=== PATIENT | female | born 1950 | race Caucasian/White ===

== ENCOUNTER 2020-01-28 18:20 | Inpatient (IN) ==
[2020-01-28] MEDS ORDERED: Morphine 4 MG/ML VIAL (1 ml) IV ONE (18:30)
[2020-01-28 19:01] LABS: ABS Basophils 0.1 10^3/ul (0-0.2); ABS Lymphocytes 1.1 10^3/ul (1.0-4.8); ABS Monocytes 0.6 10^3/ul (0-0.8); ABS Neutrophils 8.3 10^3/ul (1.5-7.7); Eosinophil % 0.3 %; Hematocrit 46 % (35-47); Hemoglobin 15.5 g/dL (12.0-16.0); Lymphocyte % 11.2 %; Mean Corpuscular HGB Conc 34 g/dL (31-36); Mean Corpuscular Hemoglobin 34 pg (27-31); Mean Corpuscular Volume 101 fL (80-97); Mean Platelet Volume 8.8 fL (7.4-10.4); Nucleated Red Blood Cells % 0.1; Platelet Count 184 10^3/uL (150-450); Red Blood Count 4.56 10^6 /uL (3.70-4.87); Red Cell Distribution Width 16 % (10-15); White Blood Count 10.1 10^3/uL (3.5-10.8)
[2020-01-28 19:10] LABS: Activated Partial Thrombo Time 32.5 seconds (26.0-38.0); INR 1.31 (0.82-1.09)
[2020-01-28 19:13] LABS: Albumin 4.2 g/dL (3.2-5.2); Calcium 9.4 mg/dL (8.6-10.3); Total Bilirubin 0.8 mg/dL (0.2-1.0)
[2020-01-28 19:19] LABS: Albumin/Globulin Ratio 1.5 (1-3); BUN/Creatinine Ratio 25.6 (8-20); EGFR African American 83.4 (>60); EGFR Non-African American 68.9 (>60); Globulin 2.8 g/dL (2-4)
[2020-01-28 19:21] LABS: Potassium 5.1 mmol/L (3.5-5.0)
[2020-01-28] MEDS ORDERED: Ondansetron 4 mg VIAL 2 MG/ML 2 ml VIAL IV PRN (20:51)
[2020-01-28] MEDS ORDERED: Al Hydrox/Mg Hydrox/Simet LIQ 30 ML UDC PO PRN (20:51)
[2020-01-28] MEDS ORDERED: Morphine 2 MG/ML SYRINGE IV PRN (20:51)
[2020-01-28 21:48] LABS: Magnesium 2.2 mg/dL (1.9-2.7)
[2020-01-28 22:09] LABS: Urine Appearance Clear; Urine Bilirubin Negative (Negative); Urine Blood Negative (Negative); Urine Color Yellow; Urine Glucose Negative (Negative); Urine Ketones Trace (Negative); Urine Nitrite Negative (Negative); Urine Protein Negative (Negative); Urine Specific Gravity 1.009 (1.010-1.030); Urine Urobilinogen Negative (Negative)
[2020-01-28 22:55] LABS: TSH Ultra Thyroid Stim Horm 0.68 mcIU/mL (0.34-5.60)
[2020-01-28 23:17] LABS: Vitamin D Total 25(OH) 8.9 ng/mL (20-50)
[2020-01-28] MEDS: oxyCODONE/Acetamin 5/325 mg TAB PO PRN (23:58)
[2020-01-29] MEDS: Senna TAB 8.6 mg TAB PO SCH ×3 (04:58→21:48)
[2020-01-29] MEDS: Heparin 5000 UNITS/ML 1 mL VIAL SUBCUT SCH ×4 (04:58→21:48)
[2020-01-29 06:52] LABS: ABS Basophils 0.1 10^3/ul (0-0.2); ABS Lymphocytes 1.1 10^3/ul (1.0-4.8); ABS Monocytes 0.6 10^3/ul (0-0.8); ABS Neutrophils 5.3 10^3/ul (1.5-7.7); Eosinophil % 0.1 %; Hematocrit 41 % (35-47); Lymphocyte % 16.2 %; Mean Corpuscular HGB Conc 35 g/dL (31-36); Mean Corpuscular Hemoglobin 35 pg (27-31); Mean Corpuscular Volume 100 fL (80-97); Mean Platelet Volume 8.6 fL (7.4-10.4); Platelet Count 182 10^3/uL (150-450); Red Blood Count 4.05 10^6 /uL (3.70-4.87); Red Cell Distribution Width 16 % (10-15)
[2020-01-29 07:01] LABS: Calcium 9.1 mg/dL (8.6-10.3); Magnesium 2.2 mg/dL (1.9-2.7); Potassium 4.6 mmol/L (3.5-5.0)
[2020-01-29 07:07] LABS: BUN/Creatinine Ratio 24.4 (8-20); EGFR African American 88.3 (>60)
[2020-01-29 07:22] LABS: INR 1.22 (0.82-1.09)
[2020-01-29] MEDS: oxyCODONE/Acetamin 5/325 mg TAB PO PRN ×2 (08:42→17:39)
[2020-01-29] MEDS: Multivitamins/Minerals TAB PO SCH (08:42)
[2020-01-29] MEDS: Nicotine PATCH 21 MG/24 HR PATCH TRANSDERM SCH (08:51)
[2020-01-29] MEDS ORDERED: Perflutren Lipid Microsphere 3 ML VIAL ONE (09:36)
[2020-01-30] MEDS ORDERED: Buffered Lidocaine 1% SYRIN 1 ml INTRADERM ONE ×2 (06:00→18:00)
[2020-01-30 06:17] LABS: ABS Basophils 0.1 10^3/ul (0-0.2); ABS Eosinophils 0.1 10^3/ul (0-0.6); ABS Lymphocytes 1.6 10^3/ul (1.0-4.8); ABS Monocytes 0.6 10^3/ul (0-0.8); ABS Neutrophils 3.5 10^3/ul (1.5-7.7); Eosinophil % 1.1 %; Hematocrit 40 % (35-47); Hemoglobin 13.8 g/dL (12.0-16.0); Lymphocyte % 27.6 %; Mean Corpuscular HGB Conc 34 g/dL (31-36); Mean Corpuscular Hemoglobin 35 pg (27-31); Mean Corpuscular Volume 102 fL (80-97); Platelet Count 171 10^3/uL (150-450); Red Blood Count 3.98 10^6 /uL (3.70-4.87); Red Cell Distribution Width 16 % (10-15); White Blood Count 5.9 10^3/uL (3.5-10.8)
[2020-01-30 06:28] LABS: BUN/Creatinine Ratio 23.3 (8-20); Calcium 8.9 mg/dL (8.6-10.3); EGFR African American 74.9 (>60); EGFR Non-African American 61.9 (>60); Potassium 4.7 mmol/L (3.5-5.0)
[2020-01-30] MEDS: Heparin 5000 UNITS/ML 1 mL VIAL SUBCUT SCH (06:36)
[2020-01-30] MEDS: oxyCODONE/Acetamin 5/325 mg TAB PO PRN ×2 (06:41→13:48)
[2020-01-30 06:55] LABS: INR 1.04 (0.82-1.09)
[2020-01-30] MEDS: Lactated Ringers 1000 ml BAG 1,000 ML IV SCH ×2 (07:28→23:02)
[2020-01-30] MEDS: Nicotine PATCH 21 MG/24 HR PATCH TRANSDERM SCH (09:03)
[2020-01-30 10:10] LABS: Folate 9.98 ng/mL (>3.99)
[2020-01-30] MEDS: Multivitamins/Minerals TAB PO SCH (10:17)
[2020-01-30] MEDS: Senna TAB 8.6 mg TAB PO SCH ×2 (10:17→23:01)
[2020-01-30] MEDS ORDERED: ROPIVACAINE 5 MG/ML 30 ML BTL (0.5%) ONE (16:08)
[2020-01-30] MEDS ORDERED: Propofol 10 MG/ML 20 ML BTL ONE (16:29)
[2020-01-30] MEDS ORDERED: fentaNYL 100 mcg/2 ml 50 MCG/ML VIAL ONE (16:29)
[2020-01-30] MEDS ORDERED: Lidocaine 2% PF 5 ML VIAL ONE (16:29)
[2020-01-30] MEDS ORDERED: Rocuronium 50 mg VIAL 10 mg/ml 5 ml VIAL (50 mg) ONE (16:31)
[2020-01-30] MEDS ORDERED: Succinylcholine 200 mg VIAL 20 mg/ml 10 ml VIAL (200 mg) ONE (16:31)
[2020-01-30] MEDS ORDERED: Clindamycin 900 MG/D5W BAG 900 MG/50 ML BAG IVPB ONE (16:36)
[2020-01-30] MEDS ORDERED: Ondansetron 4 mg VIAL 2 MG/ML 2 ml VIAL ONE (17:27)
[2020-01-30] MEDS ORDERED: Dexamethasone IV 4 MG/ML VIAL 1 ml VIAL ONE (17:27)
[2020-01-30] MEDS ORDERED: Phenylephrine 40 mcg/mL 10mL (400mcg) SYRINGE ONE (17:33)
[2020-01-30] MEDS ORDERED: Naloxone 0.4 mg VIAL 0.4 mg/ml 1 ml VIAL IV PRN (18:53)
[2020-01-30] MEDS ORDERED: Levalbuterol 0.63MG/3ML NEB UNIT OF USE INH PRN (18:53)
[2020-01-30] MEDS ORDERED: Ondansetron 4 mg VIAL 2 MG/ML 2 ml VIAL IV PRN (18:53)
[2020-01-30] MEDS ORDERED: HYDROmorphone 1 MG/1 ML SYRINGE IV PRN (18:53)
[2020-01-30] MEDS ORDERED: fentaNYL 100 mcg/2 ml 50 MCG/ML VIAL IV PRN (18:53)
[2020-01-30] MEDS ORDERED: Levalbuterol 1.25MG/0.5ML NEB.SOL ONE (18:55)
[2020-01-31] MEDS: oxyCODONE/Acetamin 5/325 mg TAB PO PRN ×4 (01:46→21:53)
[2020-01-31] MEDS: Clindamycin 600 MG/D5W BAG IV SCH ×3 (01:48→17:40)
[2020-01-31] MEDS: Multivitamins/Minerals TAB PO SCH (09:12)
[2020-01-31] MEDS: Senna TAB 8.6 mg TAB PO SCH ×2 (09:14→21:45)
[2020-01-31] MEDS: Nicotine PATCH 21 MG/24 HR PATCH TRANSDERM SCH (09:15)
[2020-01-31] MEDS: Lactated Ringers 1000 ml BAG 1,000 ML IV SCH (09:35)
[2020-01-31] MEDS: Magnesium Hydroxide LIQ 30 ML UDC PO PRN (21:45)
[2020-02-01] MEDS ORDERED: Albuterol 2.5mg/3 ml (0.083%) NEB.SOLN INH PRN (01:07)
[2020-02-01] MEDS: oxyCODONE/Acetamin 5/325 mg TAB PO PRN ×3 (06:25→22:37)
[2020-02-01] MEDS: Nicotine PATCH 21 MG/24 HR PATCH TRANSDERM SCH (08:29)
[2020-02-01] MEDS: Multivitamins/Minerals TAB PO SCH (08:43)
[2020-02-01] MEDS: Senna TAB 8.6 mg TAB PO SCH ×2 (08:43→22:36)
[2020-02-02] MEDS: Nicotine PATCH 21 MG/24 HR PATCH TRANSDERM SCH (08:12)
[2020-02-02] MEDS: oxyCODONE/Acetamin 5/325 mg TAB PO PRN ×3 (08:14→21:14)
[2020-02-02] MEDS: Senna TAB 8.6 mg TAB PO SCH ×2 (08:16→21:15)
[2020-02-02] MEDS: Magnesium Hydroxide LIQ 30 ML UDC PO PRN (08:16)
[2020-02-02] MEDS: Multivitamins/Minerals TAB PO SCH (08:16)
[2020-02-03] MEDS: oxyCODONE/Acetamin 5/325 mg TAB PO PRN ×4 (06:42→21:49)
[2020-02-03] MEDS: Nicotine PATCH 21 MG/24 HR PATCH TRANSDERM SCH (09:38)
[2020-02-03] MEDS: Multivitamins/Minerals TAB PO SCH (09:41)
[2020-02-03] MEDS: Senna TAB 8.6 mg TAB PO SCH ×2 (09:41→22:28)
[2020-02-03 13:24] LABS: Tissue Transglutaminase IgA Ab <1.2 U/mL; Tissue Transglutaminase IgG Ab 3.9 U/mL
[2020-02-04] MEDS: oxyCODONE/Acetamin 5/325 mg TAB PO PRN ×2 (06:44→15:07)
[2020-02-04] MEDS: Nicotine PATCH 21 MG/24 HR PATCH TRANSDERM SCH (08:05)
[2020-02-04] MEDS: Multivitamins/Minerals TAB PO SCH (08:42)
[2020-02-04] MEDS: Senna TAB 8.6 mg TAB PO SCH ×2 (08:42→20:50)
[2020-02-05] MEDS: Nicotine PATCH 21 MG/24 HR PATCH TRANSDERM SCH (07:42)
[2020-02-05] MEDS: Multivitamins/Minerals TAB PO SCH (08:12)
[2020-02-05] MEDS: Senna TAB 8.6 mg TAB PO SCH ×2 (08:13→21:16)
[2020-02-06] MEDS: Senna TAB 8.6 mg TAB PO SCH (08:03)
[2020-02-06] MEDS: Multivitamins/Minerals TAB PO SCH (08:03)
[2020-02-06] MEDS: Nicotine PATCH 21 MG/24 HR PATCH TRANSDERM SCH (08:03)
[2020-02-06 09:19] LABS: ABS Basophils 0.1 10^3/ul (0-0.2); ABS Eosinophils 0.2 10^3/ul (0-0.6); ABS Lymphocytes 1.5 10^3/ul (1.0-4.8); ABS Monocytes 0.5 10^3/ul (0-0.8); ABS Neutrophils 3.3 10^3/ul (1.5-7.7); Eosinophil % 4.1 %; Hematocrit 36 % (35-47); Hemoglobin 12.3 g/dL (12.0-16.0); Mean Corpuscular HGB Conc 34 g/dL (31-36); Mean Corpuscular Hemoglobin 34 pg (27-31); Mean Corpuscular Volume 101 fL (80-97); Mean Platelet Volume 7.7 fL (7.4-10.4); Platelet Count 296 10^3/uL (150-450); Red Blood Count 3.59 10^6 /uL (3.70-4.87); Red Cell Distribution Width 15 % (10-15); White Blood Count 5.7 10^3/uL (3.5-10.8)
[2020-02-06 09:37] LABS: BUN/Creatinine Ratio 23.2 (8-20); Calcium 8.8 mg/dL (8.6-10.3); EGFR African American 101.8 (>60); EGFR Non-African American 84.1 (>60); Potassium 4.3 mmol/L (3.5-5.0)
[2020-02-06 11:38] VITALS: BP 126/58
== END 2020-02-06 12:10 | DRG 482 ==
LOC: ED 18:20 → SSU 20:51
PROVIDERS: ADMIT Pediatrics; ATTEND Internal Medicine